=== PATIENT | female | born 1975 | race Caucasian/White ===

== ENCOUNTER 2016-12-02 23:20 | Emergency (ER) | payer BC ==
--- NOTE | ~2016-12-02 | CT4 ---
[facility] A Service of [facility] RADIOLOGY TEXT RESULTS PATIENT: JESSICA SAUCEDA LOCATION: [facility] : [birth year] UNIT #: [id number] AGE: [address]: Shelly Correa MD SEX: F ORDER DR: [id number] [facility] [address] [place], [place] [address] [id number] E MR#: [id number] Acc #: [id number] NAME: JESSICA SAUCEDA : 1975 SEX: F STUDY DATE/TIME: 12/03/2016 1:30 UNIT: YARELI ROOM: STUDY DESCRIPTION: CT Abd and Pelv Wo Cont Attending Physician: Shelly Correa M.D. Ordering Physician: Shelly Correa M.D. Primary Care Physician: [facility] REPORT This report is preliminary unless electronic signature is present EXAM Abdomen and pelvis CT no contrast, 12/03/2016 INDICATION 41-year-old female with lower abdominal pain extending into the flank, recent diagnosis of urinary tract infection, hematuria. Symptoms a week. TECHNIQUE Noncontrast abdomen and pelvis CT was performed. This CT exam was performed with one or more of the following radiation dose reduction techniques: automatic exposure control, adjustment of mA and/or kV according to patient size, and iterative reconstruction. COMPARISON None. FINDINGS CT ABDOMEN: Exam markedly degraded by noncontrast technique. Included lung bases demonstrate obstructive lung disease but no effusion. Probable atelectasis in the posteromedial superior segment right lower lobe. No pericardial effusion. Aorta unremarkable with the exception of atherosclerotic change. Spleen, adrenal glands and pancreas unremarkable. Gallbladder contacted. Liver unremarkable. Equivocal tiny sand-like stone in the right kidney. No hydronephrosis on the right. Right ureter not well visualized or assessed. No hydronephrosis or radiopaque stone on the left. Left ureter also not well visualized or assessed. No adenopathy. CT PELVIS: Bladder unremarkable. No free fluid or drainable fluid [facility] A Service [facility] RADIOLOGY TEXT RESULTS PATIENT: JESSICA SAUCEDA LOCATION: [facility] : [birth year] UNIT #: [id number] AGE: [address]: Shelly Correa MD SEX: F ORDER DR: collection in the pelvis. No adnexal mass. Diverticulosis of the colon. Equivocal small inflamed diverticulum of the sigmoid colon along the mesenteric aspect of the sigmoid colon. Correlate with any sign or symptom of mild acute diverticulitis. There is no complicating feature. No bowel obstruction. Appendix normal. Inguinal canal is unremarkable. No suspicious bone lesion. IMPRESSION 1. No hydronephrosis of either kidney. Equivocal tiny sand-like nonobstructing stone in the right kidney. 2. Normal appendix. 3. Diverticulosis and findings suspicious for mild acute short-segment diverticulitis of the mid sigmoid colon. No complicating features. Correlate with physical exam. 4. Included lung bases demonstrate obstructive lung disease and probable atelectasis or scarring in the posteromedial right lower lobe superior segment. Dictated by... Josias Singh M.D. THIS IS AN ELECTRONICALLY VERIFIED REPORT Josias Singh M.D. at 12/03/2016 6:23 AM Tiffany TD: 12/03/2016 04:20 JOB #: [id number] MEDICAL IMAGING REPORT Page 1 of 1 COPY
[~2016-12-02 23:20] MED LIST: CIPRO PO; MACROBID100 MG DOB
[2016-12-03 01:15] LABS: URINE SOURCE CLEAN CATCH
[2016-12-03 01:18] LABS: BASOPHIL# 0.1 X10e3 (0-0.3); BASOPHIL% 0.9 % (0-2.5); EOSINOPHIL# 0.1 X10e3 (0-0.7); EOSINOPHIL% 0.7 % (0.0-7.0); HEMATOCRIT 45.8 % (35.0-45.0); HEMOGLOBIN 15.2 gm/dL (12.0-16.0); LYMPHOCYTE# 3.5 X10e3 (1.0-3.5); LYMPHOCYTE% 25.3 % (17.0-45.0); MEAN CELL VOLUME 94.7 FL (83-96); MEAN CORPUSCULAR HEMOGLOBIN 31.5 PG (28-34); MEAN CORPUSCULAR HGB CONC 33.2 g/dL (30-36); MEAN PLATELET VOLUME 8.1 FL (6.5-11.5); MONOCYTE# 1.4 X10e3 (0-1.0); MONOCYTE% 9.7 % (3.0-12.0); NEUTROPHIL# 8.9 X10e3 (1.5-7.1); NEUTROPHIL% 63.4 % (40-75); PLATELET COUNT 360 X10e3 (140-420); RED BLOOD COUNT 4.84 X10e (3.90-5.30); RED CELL DISTRIBUTION WIDTH 13.1 % (11.0-15.5)
[2016-12-03 01:20] LABS: DIFF IND NO; URINE APPEARANCE CLOUDY; URINE BILIRUBIN NEG (NEG); URINE BLOOD NEG (NEG); URINE COLOR DK YELLOW; URINE GLUCOSE NEG (NEG); URINE KETONE NEG (NEG); URINE LEUKOCYTE ESTERASE NEG (NEG); URINE NITRATE NEG (NEG); URINE PH 6.5 (5-8); URINE PROTEIN 1+ (NEG); URINE SPECIFIC GRAVITY 1.024 (1.003-1.035)
[2016-12-03 01:25] LABS: CULTURE INDICATED? YES; URINE BACTERIA AUWI 2+ (NEGATIVE); URINE SQUAMOUS EPITHELIAL CELL MOD /[HPF]
[2016-12-03 01:36] LABS: URBCS1 AUWI NEG /[HPF] (0-2)
[2016-12-03 01:51] LABS: ALBUMIN SERUM 3.9 g/dL (3.5-5.0); BILIRUBIN, DIRECT 0.1 mg/dL (0.0-0.2); BILIRUBIN,INDIRECT 0.5 mg/dL (0.0-0.9); BILIRUBIN,TOTAL 0.6 mg/dL (0.2-2.0); BUN/CREATININE RATIO 8.57; CALCIUM SERUM 9.2 mg/dL (8.4-10.2); CREATININE SERUM 0.7 mg/dL (0.6-1.4); GLOM FILT RATE Estimated 108.4 mL/min (>60); PROTEIN TOTAL SERUM 7.5 g/dL (6.0-8.3)
[2016-12-03 01:52] LABS: POTASSIUM 2.6 mmol/L (3.5-5.1)
[2016-12-03 02:40] LABS: BARBITURATES NEG (NEG); TRICYCLIC ANTIDEPRESSANTS NEG (NEG); U METHADONE NEG (NEG)
[2016-12-20] MEDS ORDERED: BUSPIRONE HCL5 GM (18:31)
== END 2016-12-03 03:25 | disposition home or self-care (01) ==
LOC: CED 23:20
PROVIDERS: Emergency Medicine
DX: K57.92 Diverticulitis of intestine, part unspecified, without perforation or abscess without bleeding (principal); F41.9 Anxiety disorder, unspecified
CPT/HCPCS: 36415; 74176; 80048; 80076; 80307; 81003; 82150; 83690; 85025; 87086; 96360; 99284

== ENCOUNTER → 2016-12-20 17:40 | Emergency (ER) | payer BC ==
[2016-12-20 16:45] LABS: BASOPHIL# 0.1 X10e3 (0-0.3); BASOPHIL% 0.3 % (0-2.5); DIFF IND YES; EOSINOPHIL# 0.1 X10e3 (0-0.7); EOSINOPHIL% 0.4 % (0.0-7.0); HEMATOCRIT 47.2 % (35.0-45.0); HEMOGLOBIN 15.6 gm/dL (12.0-16.0); LYMPHOCYTE# 0.6 X10e3 (1.0-3.5); LYMPHOCYTE% 2.1 % (17.0-45.0); MEAN CELL VOLUME 97.4 FL (83-96); MEAN CORPUSCULAR HEMOGLOBIN 32.2 PG (28-34); MEAN CORPUSCULAR HGB CONC 33.1 g/dL (30-36); MEAN PLATELET VOLUME 8.2 FL (6.5-11.5); MONOCYTE# 1.1 X10e3 (0-1.0); MONOCYTE% 3.7 % (3.0-12.0); NEUTROPHIL# 26.5 X10e3 (1.5-7.1); NEUTROPHIL% 93.5 % (40-75); PLATELET COUNT 343 X10e3 (140-420); RED BLOOD COUNT 4.85 X10e (3.90-5.30); RED CELL DISTRIBUTION WIDTH 13.7 % (11.0-15.5); WHITE BLOOD COUNT 28.4 X10e3 (4.0-10.5)
[2016-12-20 16:50] LABS: ALBUMIN SERUM 4.1 g/dL (3.5-5.0); BILIRUBIN, DIRECT 0.1 mg/dL (0.0-0.2); BILIRUBIN,INDIRECT 0.7 mg/dL (0.0-0.9); BILIRUBIN,TOTAL 0.8 mg/dL (0.2-2.0); BUN/CREATININE RATIO 7.14; CALCIUM SERUM 9.5 mg/dL (8.4-10.2); CREATININE SERUM 0.7 mg/dL (0.6-1.4); GLOM FILT RATE Estimated 108.4 mL/min (>60); POTASSIUM 3.7 mmol/L (3.5-5.1); PROTEIN TOTAL SERUM 7.7 g/dL (6.0-8.3)
[2016-12-20 17:09] LABS: PLATELET ESTIMATE NORMAL (NORMAL); POIKILOCYTOSIS SL
[~2016-12-20 17:40] MED LIST changes: +BENTYL10 MG; +BUSPIRONE HCL5 GM; +PROTONIX
== END | disposition left against medical advice (07) ==
LOC: CED 17:40
DX: Z53.21 Procedure and treatment not carried out due to patient leaving prior to being seen by health care provider (principal)
CPT/HCPCS: 80048; 80076; 82150; 83690; 85025

== ENCOUNTER 2016-12-20 19:44 | Emergency (ER) | payer BC ==
--- NOTE | ~2016-12-20 | CT2 ---
[facility] A Service of [facility] RADIOLOGY TEXT RESULTS PATIENT: JESSICA SAUCEDA LOCATION: SED : 77 UNIT #: [id number] AGE: [address]: Bobby Mckeon MD SEX: F ORDER DR: [id number] [place] [id number] E MR#: [id number] Acc #: [id number] NAME: JESSICA SAUCEDA : 1975 SEX: F STUDY DATE/TIME: 12/20/2016 20:07 UNIT: SED ROOM: STUDY DESCRIPTION: CT Abd and Pelv W Cont Attending Physician: Bobby Mckeon M.D. Referring Physician: Bobby Mckeon M.D. Ordering Physician: Bobby Mckeon M.D. Primary Care Physician: Declan Nash M.D. MEDICAL IMAGING REPORT This report is preliminary unless electronic signature is present. EXAM CT abdomen and pelvis with IV contrast HISTORY Abdomen pain, nausea, vomiting, diarrhea today. TECHNIQUE This CT examination was performed with one or more of the following radiation dose reduction techniques: automatic exposure control, adjustment of mA and/or kV according to patient size, and iterative reconstruction. FINDINGS CT abdomen and pelvis was performed with IV contrast. CT ABDOMEN: There are 2 small incidental subcentimeter hepatic cysts. No biliary dilatation. The gallbladder, spleen, pancreas, kidneys, and adrenal glands are unremarkable. Normal caliber abdominal aorta. Gczl-sa-onwwwcwr diffuse wall thickening of the colon, suggesting infectious or inflammatory colitis. No bowel dilatation. No adenopathy. CT PELVIS: Moderate diffuse wall thickening of the sigmoid colon and rectum, with no bowel dilatation. The uterus and adnexa are unremarkable. Normal appendix in the anterior right lower pelvis. The urinary bladder is normal. IMPRESSION 1. Moderate diffuse wall thickening of the colon and rectum suggesting diffuse infectious or inflammatory colitis. 2. No bowel dilatation. 3. No ascites or abscess. 4. Normal appendix. [facility] A Service of [facility] RADIOLOGY TEXT RESULTS PATIENT: JESSICA SAUCEDA LOCATION: [facility] : 77 UNIT #: [id number] AGE: [address]: Bobby Mckeon MD SEX: F ORDER DR: Dictated by... Juventino Siegel M.D. THIS IS AN ELECTRONICALLY VERIFIED REPORT Juventino Siegel M.D. at 12/21/2016 11:06 AM KEATON/timbo TD: 12/21/2016 07:24 JOB #: [id number] MEDICAL IMAGING REPORT Page 1 of 1
[~2016-12-20 19:44] MED LIST changes: -BENTYL10 MG; -PROTONIX
[2016-12-20 20:46] LABS: URINE SOURCE CLEAN CATCH
[2016-12-20 20:48] LABS: URINE APPEARANCE CLEAR; URINE BILIRUBIN NEG (NEG); URINE BLOOD NEG (NEG); URINE COLOR YELLOW; URINE GLUCOSE NEG (NORM); URINE KETONE TRACE (NEG); URINE LEUKOCYTE ESTERASE NEG (NEG); URINE NITRATE NEG (NEG); URINE PROTEIN TRACE (NEG); URINE UROBILINOGEN 0.2 MG/DL (NORM)
[2016-12-20 20:49] LABS: MICRO INDICATED? YES
[2016-12-20 20:58] LABS: CULTURE INDICATED? NO; URINE BACTERIA NEG (NEG); URINE RBC 0-2 /[HPF] (0-2); URINE SQUAMOUS EPITHELIAL CELL OCCAS /[HPF]; URINE WBC 0-2 /[HPF] (0-5)
== END 2016-12-21 00:08 ==
LOC: SED 19:44
PROVIDERS: Emergency Medicine
DX: K52.9 Noninfective gastroenteritis and colitis, unspecified (principal)
CPT/HCPCS: 74177; 81003; 84703; 96374; 96375; 99285; C9113; J1170; J1956; J2405; Q9967

== ENCOUNTER 2017-02-05 23:59 | Emergency (ER) | payer BC ==
[2017-02-06] MEDS ORDERED: PROTONIX (00:07)
[2017-02-06] MEDS ORDERED: BENTYL10 MG (00:07)
== END 2017-02-06 00:50 | disposition home or self-care (01) ==
LOC: SED 23:59
DX: I80.8 Phlebitis and thrombophlebitis of other sites (principal); F17.210 Nicotine dependence, cigarettes, uncomplicated
CPT/HCPCS: 29280; 99283

== ENCOUNTER → 2017-04-28 | Outpatient (CLI) | payer BC ==
[~2017-04-28] MED LIST changes: +BENTYL10 MG; +PROTONIX
--- NOTE | ~2017-04-28 | US49 ---
[facility] A Service of [facility] RADIOLOGY TEXT RESULTS PATIENT: JESSICA SAUCEDA LOCATION: [facility] : 77 UNIT #: [id number] AGE: [address]: Mary Alice Capone APRN SEX: F ORDER DR: [id number] [facility] [address] [place], [place] [address] [id number] O MR#: [id number] Acc #: [id number] NAME: JESSICA SAUCEDA : 1975 SEX: F STUDY DATE/TIME: 04/28/2017 8:50 UNIT: [facility] ROOM: STUDY DESCRIPTION: US Extremity Non Vasc Complete Attending Physician: Mary Alice Capone A.P.R.N. Referring Physician: Mary Alice Capone A.P.R.N. Ordering Physician: Mary Alice Capone A.P.R.N. Primary Care Physician: Declan Nash M.D. MEDICAL IMAGING REPORT This report is preliminary unless electronic signature is present EXAM Targeted ultrasound left breast 04/28/2017 INDICATION 41-year-old female complaining of fullness of the junction between the chest wall and superior medial portion of the left breast for the past 2-4 weeks. No known injury but the patient works at [employer] and she says it is possible that she injured or bruised the area and cannot recall when or if that occurred. She denies a focal palpable nodule. TECHNIQUE Sonographic imaging of the area of patient concern was performed on the left. No comparisons. No prior mammograms. FINDINGS LEFT CHEST WALL ULTRASOUND: Imaging of the area of patient concern was performed. It is at the junction of the chest wall and superior medial aspect of the left breast tissue. Limited physical exam (with patient consent) was performed. There is asymmetric prominence of this area compared to the contralateral right side. There is, however, no palpable nodule or mass on my exam here in the department. Ultrasound of the area demonstrates no distinct solid or cystic mass or persistent shadowing abnormality. Mild prominence of the pectoralis musculature was noted. Imaging of the contralateral right side which is asymptomatic was also performed and the imaging features on the right are similar to the left. The patient has not had a mammogram in over 20 years. Suggest further evaluation with a bilateral diagnostic mammogram for more complete characterization. The patient was offered the option to be worked in for a diagnostic mammogram here in the department today but she has declined that option secondary to preexisting scheduled appointments. She was encouraged to return for a diagnostic mammogram at her earliest convenience to complete workup of the patient's complaint. She has voiced STS. [facility] A Service of [facility] RADIOLOGY TEXT RESULTS PATIENT: JESSICA SAUCEDA LOCATION: [facility] : 77 UNIT #: [id number] AGE: [address]: Mary Alice Capone APRN SEX: F ORDER DR: understanding and agreement. IMPRESSION On physical exam, there is asymmetric visible fullness of the junction between the chest wall and the superior medial aspect of the breast tissue on the left. However, ultrasound and physical exam demonstrate no focal abnormality on the left. Suggest further evaluation with a diagnostic mammogram for better characterization. The patient could not remain here in the department for the diagnostic mammogram today and this should be scheduled at the patient's earliest convenience. Findings and recommendations were discussed with the patient. She voiced understanding and agreement. BIRADS: 0 Incomplete: Need additional imaging evaluation and/or prior mammograms for comparison Dictated by... Josias Singh M.D. THIS IS AN ELECTRONICALLY VERIFIED REPORT Josias Singh M.D. at 04/28/2017 12:21 PM BHAVIK/timbo TD: 04/28/2017 12:09 JOB #: [id number] MEDICAL IMAGING REPORT Page 1 of 1 COPY
== END | disposition home or self-care (01) ==
LOC: CWCC 08:35
DX: M79.89 Other specified soft tissue disorders (principal); R91.8 Other nonspecific abnormal finding of lung field
CPT/HCPCS: 76881

== ENCOUNTER → 2017-05-06 | Outpatient (CLI) | payer BC ==
--- NOTE | ~2017-05-06 | MY26 ---
[facility] A Service of [facility] RADIOLOGY TEXT RESULTS PATIENT: JESSICA SAUCEDA LOCATION: [facility] : 77 UNIT #: [id number] AGE: [address]: Mary Alice Capone APRN SEX: F ORDER DR: [id number] [facility] [address] [place], [place] [address] [id number] O MR#: [id number] Acc #: [id number] NAME: JESSICA SAUCEDA : 1975 SEX: F STUDY DATE/TIME: 05/06/2017 11:47 UNIT: [facility] ROOM: STUDY DESCRIPTION: [facility] DIAGNOSTIC W/ CAD BILAT Attending Physician: Mary Alice Capone A.P.R.N. Referring Physician: Mary Alice Capone A.P.R.N. Ordering Physician: Mary Alice Capone A.P.R.N. Primary Care Physician: Declan Nash M.D. MEDICAL IMAGING REPORT This report is preliminary unless electronic signature is present EXAM Bilateral digital diagnostic mammogram with CAD, 05/06/2017 INDICATIONS 41-year-old female complaining of an asymmetry of the chest wall and nodularity of the soft tissue on the left. No personal or family history of breast cancer. No surgeries. The patient underwent ultrasound of the area of concern 04/28/2017 and was unable to remain in the department for completion of imaging with mammography on that date and returns today for the mammographic portion of the study. She reports no interval change. FINDINGS Correlation is made with the prior ultrasound of 04/28/2017. Radiopaque marker overlies the area of concern in the upper inner hemisphere left breast. Deep to the marker, there is no suspicious mammographic finding. The breast parenchyma is composed of scattered fibroglandular densities. There is no dominant nodule, mass or suspicious cluster of microcalcifications. Incidental benign calcifications. Additional spot compression view was performed on the left and is negative. Benign appearing axillary nodes on the right. In conjunction with the prior ultrasound of 04/28/2017, imaging findings on both modalities are benign and concordant. Clinical considerations to determine additional imaging at this point. The patient was encouraged to return for additional imaging if symptoms worsened. Otherwise, a screening mammography regimen is recommended to begin next year. Findings and recommendations were discussed with the patient and she voiced understanding and agreement. IMPRESSION 1. Negative bilateral diagnostic mammogram. Targeted ultrasound of the area of patient concern was performed 04/28/2017 and was also negative. Imaging findings are concordant. Clinical considerations [facility] A Service of [facility] RADIOLOGY TEXT RESULTS PATIENT: JESSICA SAUCEDA LOCATION: [facility] : 77 UNIT #: [id number] AGE: [address]: Mary Alice Capone APRN SEX: F ORDER DR: to determine additional imaging at this time. A screening mammogram is recommended in 1 year, absent new or worsening symptoms. Patients over the age of 40 are entered into a reminder system with target due date for the next mammogram. A result letter will also be sent to the patient. BIRADS: 1 Negative Dictated by... Josias Singh M.D. THIS IS AN ELECTRONICALLY VERIFIED REPORT Josias Singh M.D. at 05/06/2017 5:26 PM BHAVIK/luma TD: 05/06/2017 14:01 JOB #: [id number] MEDICAL IMAGING REPORT Page 1 of 1 COPY
== END | disposition home or self-care (01) ==
LOC: CMAM 05-04 08:00
DX: Q67.8 Other congenital deformities of chest (principal); M79.89 Other specified soft tissue disorders
CPT/HCPCS: G0204